=== PATIENT | female | born 1965 | race Caucasian/White ===

== ENCOUNTER 2020-06-08 09:05 | Day surgery (SDC) | payer MEDICAID ==
[~2020-06-08] VITALS: Ht 160 cm; Wt 78.5 kg
[2020-06-08] MEDS ORDERED: IV NS 0.9% 250 ML IV ONE (09:07)
[2020-06-08] MEDS ORDERED: IOHEXOL-350 100 ML VIAL IV ONE (09:07)
[2020-06-08 09:23] VITALS: BP 120/76
--- NOTE | 2020-06-08 09:27 | NUR ---
CTA procedure well tolerated by the pt. V/S stable, not in respiratory distress, IV saline lock intact and infusing well, report given to Omar for pt transport back to [facility].
[2020-06-08] MEDS ORDERED: METOPROLOL TARTRATE INJ 5 MG/5 ML AMPUL IVP ONE (09:30)
[2020-06-08] MEDS ORDERED: NITROGLYCERIN 0.4 MG/TAB BOTTLE SL ONE (09:30)
== END 2020-06-08 09:40 | disposition short-term general hospital (02) ==
LOC: CT 09:05
PROVIDERS: ATTEND Internal Medicine Interventional Cardiology
DX: J84.10 Pulmonary fibrosis, unspecified (principal)
CPT/HCPCS: 75574; J7050; Q9967